=== PATIENT | female | born 1990 | race Caucasian/White ===

== ENCOUNTER 2021-01-28 19:45 | Emergency (ER) | payer BC ==
--- NOTE | 2021-01-28 20:49 | EDM.PDOC ---
ED HPI GENERAL MEDICAL PROBLEM - General Chief Complaint: General Stated Complaint: POTENTIAL TICK BORNE DISEASE Time Seen by Provider: 01/28/21 20:25 Source of Information: Reports: Patient History Limitations: Reports: No Limitations - History of Present Illness INITIAL COMMENTS - FREE TEXT/NARRATIVE: 30-year-old female concerned that she may have a tickborne illness. She was bit on the back by a tick 2 weeks ago, about a week later she started developing some migratory rash and arthritic changes as well as diarrhea. No significant fevers or chills, no persistent nausea or vomiting, denies cough, shortness of breath. Over the past 48 hours she has developed stiffness and soreness in the joints of her left hand and a new area of rash on her right lateral abdomen and still has some erythema around the tick bite on her back. She had Lyme's about 5 years ago that was treated successfully. She is otherwise healthy. Onset: Unknown/Unsure Duration: Waxing/Waning (Symptoms have been waxing and waning for the last 7 to 10 days) Location: Reports: Other (Joint pain is located on the left hand, rash on the trunk and back) Improves with: Reports: None Worsens with: Reports: None Associated Symptoms: Denies: Confusion, Chest Pain, Fever/Chills, Headaches, Loss of Appetite, Shortness of Breath Left Hand Pain Score (Numeric/FACES): 8 - Related Data Allergies Allergy/AdvReac Type Severity Reaction Status Date / Time Penicillins Allergy Rash Verified 01/28/21 20:24 Home Meds: Home Meds NK [No Known Home Meds] 01/28/21 [History] Past Medical History Immunologic History: Reports: Other (See Below) Other Immunologic History: lymes - Infectious Disease History Infectious Disease History: Reports: Chicken Pox - Past Surgical History HEENT Surgical History: Reports: Tonsillectomy Social & Family History - Tobacco Use Tobacco Use Status *Q: Never Tobacco User Second Hand Smoke Exposure: No - Caffeine Use Caffeine Use: Reports: Tea - Recreational Drug Use Recreational Drug Use: No ED ROS GENERAL - Review of Systems Review Of Systems: See Below Constitutional: Denies: Fever, Chills HEENT: Denies: Vision Change Respiratory: Denies: Shortness of Breath, Cough Cardiovascular: Denies: Chest Pain GI/Abdominal: Reports: Diarrhea. Denies: Abdominal Pain, Hematemesis, Hematochezia, Vomiting Musculoskeletal: Reports: Hand Pain (Left hand) Skin: Reports: Rash, Erythema Neurological: Denies: Confusion, Dizziness, Headache, Paresthesia Psychiatric: Reports: No Symptoms ED EXAM, GENERAL - Physical Exam Exam: See Below Exam Limited By: No Limitations General Appearance: Alert, No Apparent Distress Eye Exam: Bilateral Eye: Normal Inspection Head: Atraumatic Neck: Non-Tender Respiratory/Chest: Lungs Clear Cardiovascular: Regular Rate, Rhythm. No: Tachycardia GI/Abdominal: Non-Tender Extremities: Other (On palpation there is some objective tenderness to the MP joints on the left hand second and third digit, but no objective swelling or erythema) Neurological: Alert, Oriented Skin Exam: Warm, Dry, Erythema (Patient has an erythematous rash on the right lateral abdomen, and an irregular rash on her back. It is blanching and does not look like erythema migrans) Course - Vital Signs Last Recorded V/S: Last Vital Signs Temp 97.8 F 01/28/21 20:31 Pulse 71 01/28/21 20:31 Resp 16 01/28/21 20:31 BP 140/99 H 01/28/21 20:31 Pulse Ox 100 01/28/21 20:31 - Orders/Labs/Meds Orders: Active Orders 24 hr Category Date Time Status HUMAN GRANULOCYTIC YURI-HGE Urgent Lab 01/28/21 20:55 Received LYME, TOTAL AB TEST/REFLEX Urgent Lab 01/28/21 20:55 Received Labs: Laboratory Tests 01/28/21 01/28/21 Range/Units 20:55 20:55 WBC 12.3 H (4.5-11.0) K/uL RBC 4.92 (3.30-5.50) M/uL Hgb 14.3 (12.0-15.0) g/dL Hct 43.3 (36.0-48.0) % MCV 88 (80-98) fL MCH 29 (27-31) pg MCHC 33 (32-36) % Plt Count 243 (150-400) K/uL Add Manual Diff Yes Neutrophils % (Manual) 80 H (36-66) % Lymphocytes % (Manual) 13 L (24-44) % Monocytes % (Manual) 6 (2-6) % Eosinophils % (Manual) 1 L (2-4) % Atypical Lymphocytes Few Sodium 140 (140-148) mmol/L Potassium 3.5 L (3.6-5.2) mmol/L Chloride 102 (100-108) mmol/L Carbon Dioxide 27 (21-32) mmol/L Anion Gap 14.5 H (5.0-14.0) mmol/L BUN 8 (7-18) mg/dL Creatinine 0.9 (0.6-1.0) mg/dL Est Cr Clr Drug Dosing 82.25 mL/min Estimated GFR (MDRD) > 60 (>60) Glucose 77 (74-106) mg/dL Calcium 9.2 (8.5-10.1) mg/dL - Re-Assessments/Exams Free Text/Narrative Re-Assessment/Exam: 01/28/21 20:47 CBC, BMP and tick studies were obtained. Patient will be started on doxycycline 100 twice daily for 10 days pending lab results and may need an additional course if positive. She will return if worsening despite treatment. 01/28/21 23:11 White count is mildly elevated at 12,300, anion gap is minimally elevated, the rest of her BMP is reassuring. Departure - Departure Time of Disposition: 20:59 Disposition: Home, Self-Care 01 Clinical Impression: Pain, joint, hand, left, Rash Diarrhea Qualifiers: Diarrhea type: unspecified type Qualified Code(s): R19.7 - Diarrhea, unspecif ied - Discharge Information Instructions: Tick Bite Information, Adult, [id number] Referrals: PCP,None [Primary Care Provider] - Forms: ED Department Discharge Care Plan Goals: Take antibiotic twice daily for full 10 days, consider rechecking in 3 to 4 days if not improving. Return anytime if worsening such as difficulty breathing, persistent fever, headache or neck pain. You will be informed of your lab results sometime in the next 1 to 2 weeks. Sepsis Event Note (ED) - Evaluation Sepsis Screening Result: No Definite Risk - Focused Exam Vital Signs: Vital Signs Temp Pulse Resp BP Pulse Ox 01/28/21 20:31 97.8 F 71 16 140/99 H 100 01/28/21 20:14 97.8 F 71 16 140/99 H 100 - My Orders Last 24 Hours: My Active Orders 01/28/21 20:55 HUMAN GRANULOCYTIC YURI-HGE Urgent LYME, TOTAL AB TEST/REFLEX Urgent - Assessment/Plan Last 24 Hours: My Active Orders 01/28/21 20:55 HUMAN GRANULOCYTIC YURI-HGE Urgent LYME, TOTAL AB TEST/REFLEX Urgent
[2021-01-31 14:14] LABS: HGE IGG TITER Negative (Neg:<1:64); HGE IGM TITER Negative (Neg:<1:20)
== END 2021-01-28 20:59 | disposition home or self-care (01) ==
LOC: JP.ED 19:45
DX: R21 Rash and other nonspecific skin eruption (principal); M25.542 Pain in joints of left hand; R19.7 Diarrhea, unspecified; Z88.0 Allergy status to penicillin
CPT/HCPCS: 36415; 80048; 85025; 86666; 99283; 99284

== ENCOUNTER 2021-01-29 18:15 | Emergency (ER) | payer BC ==
[2021-01-29] MEDS ORDERED: methylPREDNISolone Sodium Succinate 125 MG/2 ML SDV IVPUSH ONE (19:18)
--- NOTE | 2021-01-29 19:19 | EDM.PDOC ---
ED HPI GENERAL MEDICAL PROBLEM - General Chief Complaint: Allergic Reaction Stated Complaint: SWOLLEN FACE, SORE MUSCLES Time Seen by Provider: 01/29/21 19:19 Source of Information: Reports: Patient History Limitations: Reports: No Limitations - History of Present Illness INITIAL COMMENTS - FREE TEXT/NARRATIVE: pt arrived with a swollen lip and generalized hives. prior to taking the doxycline pt did have hive like lesions on the left arm and abdoman. The hives got much worse tonight. she has used doxycline many times in the past. She has a history of chronic lymes flares since 2009. She usually does not have hives. She has had multiple target lesions in the past. She has difficulty moving the fingers of the left hand. Her rt lnee and anklle are painful. She has had flares with her joints multiple times. She did have a tick bite about 2 weeks ago. She did develop severe diarrhea about 2 weeks ago. This is now better. w Onset: Other ( the huives and facial swelling was much worse today. ) Duration: Hour(s): Location: Reports: Face, Upper Extremity, Left, Lower Extremity, Right Associated Symptoms: Reports: No Other Symptoms Right Leg Pain Score (Numeric/FACES): 9 - Related Data Allergies Allergy/AdvReac Type Severity Reaction Status Date / Time Penicillins Allergy Rash Verified 01/29/21 19:28 Home Meds: Home Meds Doxycycline [Doxycycline Hyclate] 100 mg PO BID 01/29/21 [History] Past Medical History Immunologic History: Reports: Other (See Below) Other Immunologic History: lymes - Infectious Disease History Infectious Disease History: Reports: Chicken Pox - Past Surgical History HEENT Surgical History: Reports: Tonsillectomy Social & Family History - Tobacco Use Tobacco Use Status *Q: Never Tobacco User - Caffeine Use Caffeine Use: Reports: None - Recreational Drug Use Recreational Drug Use: No ED ROS ALLERGIC REACTION - Review of Systems Review Of Systems: See Below Constitutional: Reports: Weakness, Other (hives and facial swelling. ) HEENT: Reports: Other ( upper lip is markedly swollen) Respiratory: Reports: No Symptoms Cardiovascular: Reports: No Symptoms Endocrine: Reports: No Symptoms GI/Abdominal: Reports: No Symptoms, Other ( diarrhea is better and she is eating well. ) : Reports: No Symptoms Musculoskeletal: Reports: No Symptoms Skin: Reports: No Symptoms Neurological: Reports: Other ( the strength in her left hand is better. ) Psychiatric: Reports: Anxiety ED EXAM GENERAL NO PERIP PULSE - Physical Exam Exam: See Below Text/Narrative:: pt arrived with swelling in her upper lip and marked hiving. Exam Limited By: No Limitations General Appearance: Alert, Anxious, Mild Distress, Other (pt is not having difficulty breathing. ) Ears: Normal TMs Nose: Normal Inspection Throat/Mouth: Normal Inspection, Other (upper lip is markedly swollen. ) Head: Atraumatic Neck: Normal Inspection Respiratory/Chest: No Respiratory Distress GI/Abdominal: Non-Tender Rectal (Female) Exam: Deferred Back Exam: Normal Inspection Extremities: Other (left hand strength has improved. Her rt knee and rt ankle are tender but not swollen. ) Neurological: Alert, Oriented Psychiatric: Normal Affect Course - Vital Signs Last Recorded V/S: Last Vital Signs Temp 36.7 C 01/29/21 19:06 Pulse 85 01/29/21 19:06 Resp 16 01/29/21 19:06 BP 113/66 01/29/21 19:06 Pulse Ox 100 01/29/21 19:06 - Orders/Labs/Meds Orders: Active Orders 24 hr Category Date Time Status Sodium Chloride 0.9% [Normal Saline] 1,000 ml Med 01/29/21 19:30 Active IV ASDIRECTED Sodium Chloride 0.9% [Normal Saline] 1,000 ml Med 01/29/21 20:45 Active IV ASDIRECTED Medication Orders Sodium Chloride (Normal Saline) 1,000 mls @ 999 mls/hr IV ASDIRECTED ABI Last Admin: 01/29/21 19:28 Dose: 999 mls/hr Documented by: LAYA Sodium Chloride (Normal Saline) 1,000 mls @ 999 mls/hr IV ASDIRECTED ABI Last Admin: 01/29/21 21:02 Dose: 999 mls/hr Documented by: LAYA Labs: Laboratory Tests 01/29/21 01/29/21 Range/Units 19:25 19:25 WBC 15.5 H (4.5-11.0) K/uL RBC 4.83 (3.30-5.50) M/uL Hgb 14.1 (12.0-15.0) g/dL Hct 42.6 (36.0-48.0) % MCV 88 (80-98) fL MCH 29 (27-31) pg MCHC 33 (32-36) % Plt Count 200 (150-400) K/uL Neut % (Auto) 87.6 H (36-66) % Lymph % (Auto) 8.2 L (24-44) % [place] % (Auto) 3.7 (2-6) % Eos % (Auto) 0.3 L (2-4) % Baso % (Auto) 0.2 (0-1) % Sodium 141 (140-148) mmol/L Potassium 3.8 (3.6-5.2) mmol/L Chloride 105 (100-108) mmol/L Carbon Dioxide 23 (21-32) mmol/L Anion Gap 13.0 (5.0-14.0) mmol/L BUN 14 D (7-18) mg/dL Creatinine 0.9 (0.6-1.0) mg/dL Est Cr Clr Drug Dosing 82.25 mL/min Estimated GFR (MDRD) > 60 (>60) Glucose 145 H (74-106) mg/dL Calcium 8.8 (8.5-10.1) mg/dL Total Bilirubin 0.9 (0.2-1.0) mg/dL AST 14 L (15-37) U/L ALT 27 (12-78) U/L Alkaline Phosphatase 62 (46-116) U/L C-Reactive Protein 2.91 H (0.0-0.3) mg/dL Total Protein 6.4 (6.4-8.2) g/dL Albumin 3.6 (3.4-5.0) g/dL Globulin 2.8 (2.3-3.5) g/dL Albumin/Globulin Ratio 1.3 (1.2-2.2) Meds: Medications Generic Name Dose Route Start Last Admin Trade Name Freq PRN Reason Stop Dose Admin Sodium Chloride 1,000 mls @ 999 mls/hr 01/29/21 19:30 01/29/21 19:28 Normal Saline IV 999 mls/hr ASDIRECTED ABI Administration Sodium Chloride 1,000 mls @ 999 mls/hr 01/29/21 20:45 01/29/21 21:02 Normal Saline IV 999 mls/hr ASDIRECTED ABI Administration Discontinued Medications Generic Name Dose Route Start Last Admin Trade Name Freq PRN Reason Stop Dose Admin Diphenhydramine HCl 25 mg 06/22/21 20:28 01/29/21 21:03 Diphenhydramine 50 Mg/Ml Sdv IVPUSH 01/29/21 20:29 25 mg ONETIME ONE Administration Doxycycline Hyclate 100 mg 01/29/21 21:24 Doxycycline 100 Mg Cap PO 01/29/21 21:25 ONETIME ONE Methylprednisolone Sodium Succinate 125 mg 01/29/21 19:18 01/29/21 19:33 Methylprednisolone Sodium Succinate 125 Mg/2 Ml Sdv IVPUSH 01/29/21 19:19 125 mg ONETIME ONE Administration Departure - Departure Time of Disposition: 21:21 Disposition: Home, Self-Care 01 Condition: Fair Clinical Impression: Acute Lyme disease with neurological disease, Hives - Discharge Information Referrals: PCP,None [Primary Care Provider] - Forms: ED Department Discharge Care Plan Goals: cool pack to facial area, continue doxycline, predisone 10 mg 2tabs daily for 3 daiys 1.5 tabs for 3 days then 1 tab daily for 2 day. appt with luis weinberg in 4-5 day. rtc if pt should get worse. Pt should use benadryl 50mg q6h for hiving. Sepsis Event Note (ED) - Evaluation Sepsis Screening Result: No Definite Risk - Focused Exam Vital Signs: Vital Signs Temp Pulse Resp BP Pulse Ox 01/29/21 19:06 36.7 C 85 16 113/66 100 01/29/21 18:56 36.7 C 85 16 113/66 100 - My Orders Last 24 Hours: My Active Orders 01/29/21 19:30 Sodium Chloride 0.9% [Normal Saline] 1,000 ml IV ASDIRECTED 01/29/21 20:45 Sodium Chloride 0.9% [Normal Saline] 1,000 ml IV ASDIRECTED - Assessment/Plan Last 24 Hours: My Active Orders 01/29/21 19:30 Sodium Chloride 0.9% [Normal Saline] 1,000 ml IV ASDIRECTED 01/29/21 20:45 Sodium Chloride 0.9% [Normal Saline] 1,000 ml IV ASDIRECTED
[2021-01-29] MEDS ORDERED: Sodium Chloride 0.9% 1,000 ML IV SCH ×2 (19:30→20:45)
[2021-01-29] MEDS ORDERED: diphenhydrAMINE 50 MG/ML SDV IVPUSH ONE (20:28)
[2021-01-29] MEDS ORDERED: Doxycycline 100 MG Cap PO ONE (21:24)
== END 2021-01-29 22:26 | disposition home or self-care (01) ==
LOC: JP.ED 18:15
DX: A69.20 Lyme disease, unspecified (principal); G98.8 Other disorders of nervous system; Z88.0 Allergy status to penicillin
CPT/HCPCS: 36415; 80053; 85025; 86140; 87635; 96374; 96375; 99283; 99284; A9270; J1200; J2930; J7030; U0002